=== PATIENT | female | born 1950 | race Asian ===

== ENCOUNTER 2022-09-07 16:10 | Emergency (ER) | payer OTHER ==
[~2022-09-07] VITALS: Ht 167.6 cm; Wt 73.5 kg
[2022-09-07 16:10] VITALS: BP 137/71; TEMP 98.1
[2022-09-07 17:45] LABS: PLATELET COUNT 249 K/uL (152-353)
[2022-09-07 17:48] LABS: POTASSIUM 4.3 mmol/L (3.6-5.2)
[2022-09-07] MEDS ORDERED: AMLODIPINE BESYLATE PO (21:56)
[2022-09-07] MEDS ORDERED: ASPIRIN LOW81 MG PO (21:57)
[2022-09-07] MEDS ORDERED: LOSA50TA PO (21:58)
[2022-09-07] MEDS ORDERED: ACIDOPHILU PO (21:59)
[2022-09-07] MEDS ORDERED: LEVEMIR FL100 UNIT/M SC ×2 (22:00→22:01)
[2022-09-07] MEDS ORDERED: MULTIVITAMI1 PO (22:01)
[2022-09-07] MEDS ORDERED: OLANZAPINE20 M1 PO (22:02)
[2022-09-07] MEDS ORDERED: SENNA PLUS 50-81 CAP PO (22:04)
[2022-09-07] MEDS ORDERED: DIVALPROEX125 M1 PO (22:07)
[2022-09-07] MEDS ORDERED: DIVALPROEX500 M1 PO (22:09)
[2022-09-07] MEDS ORDERED: LAMOTRIGINE ER200 MG PO (22:11)
[2022-09-07] MEDS ORDERED: LAMICTAL200 MG PO (22:12)
[2022-09-07] MEDS ORDERED: LEVE500T5 PO (22:13)
[2022-09-07] MEDS ORDERED: METFORMIN HYD1000 MG PO (22:14)
[2022-09-07] MEDS ORDERED: ZIPR80CA PO (22:15)
[2022-09-07] MEDS ORDERED: CEPH500C20 PO (22:17)
[2022-09-07] MEDS ORDERED: INSULIN LI100 UNIT/1 IM (22:18)
[2022-09-07] MEDS ORDERED: TYLENOL325 MG PO (22:19)
[2022-09-14] MEDS ORDERED: DIVALPROEX500 MG PO (10:23)
[2022-09-14] MEDS ORDERED: ACET-206 PO (10:23)
[2022-09-14] MEDS ORDERED: ASPI81TA4 PO (10:23)
[2022-09-14] MEDS ORDERED: Depakote Sprinkles 1 PO (10:23)
[2022-09-14] MEDS ORDERED: NORVASC 5MG TAB PO (10:23)
[2022-09-14] MEDS ORDERED: LEVE500T5 PO (10:24)
[2022-09-14] MEDS ORDERED: INSU-1996 SC (10:24)
[2022-09-14] MEDS ORDERED: INSU100P SC (10:24)
[2022-09-14] MEDS ORDERED: METF500T PO (10:25)
[2022-09-14] MEDS ORDERED: LOSA50TA PO (10:25)
[2022-09-14] MEDS ORDERED: LAMO100T PO (10:25)
[2022-09-14] MEDS ORDERED: OLANZAPINE5 MG PO (10:25)
[2022-09-14] MEDS ORDERED: OLANZAPINE10 MG PO (10:26)
== END 2022-09-07 19:40 ==
LOC: ED 16:10
PROVIDERS: Family Medicine
DX: R45.6 Violent behavior (principal); Z02.79 Encounter for issue of other medical certificate
CPT/HCPCS: 80053; 81002; 85027; 87635; 93005; 99283; U0003